=== PATIENT | female | born 1995 | race Caucasian/White ===

== ENCOUNTER 2019-06-24 17:25 | Emergency (ER) | payer OTHER ==
[~2019-06-24] VITALS: Ht 172.7 cm; Wt 90.7 kg
[2019-06-24 18:27] LABS: ABSOLUTE EOSINOPHILS 0.1 thou/uL (0.0-0.7); ABSOLUTE LYMPHOCYTES 2.3 thou/uL (0.8-5.3); ABSOLUTE MONOCYTES 0.7 thou/uL (0.0-1.2); ABSOLUTE NEUTROPHILS 4.9 thou/uL (1.6-8.1); BASOPHILS 0.6 %; EOSINOPHILS 1.6 %; HEMATOCRIT 40.3 % (37.0-47.0); HEMOGLOBIN 13.5 gm/dL (12.0-15.0); LYMPHOCYTES 28.2 %; MCH 28.8 pg (26.0-34.0); MCHC 33.5 g/dL (28.0-37.0); MCV 85.8 fL (80.0-100.0); MONOCYTES 8.9 %; MPV 8.2 fl. (7.2-11.1); NUCLEATED RBCS 0 /100WBC; PLATELET COUNT* 336 thou/uL (150-400); POLYS 60.7 %; RDW-CV 14.9 % (10.5-14.5)
[2019-06-24 18:34] LABS: ANION GAP 10 mmol/L (7-16); BUN 13 mg/dL (7-18); CALCIUM 8.9 mg/dL (8.5-10.1); CHLORIDE 102 mmol/L (98-107); CO2 24 mmol/L (21-32); CREATININE 0.7 mg/dL (0.6-1.3); GLUCOSE 91 mg/dL (70-99); POTASSIUM 3.9 mmol/L (3.5-5.1); SODIUM 136 mmol/L (136-145)
[2019-06-24 18:43] LABS: ALBUMIN 3.8 g/dL (3.4-5.0); ALKALINE PHOSPHATASE 53 U/L (46-116); LIPASE 64 U/L (73-393); SGOT 24 U/L (15-37); SGPT 32 U/L (30-65); TOTAL BILIRUBIN 0.4 mg/dL (<0.1-1.0); TOTAL PROTEIN 7.5 g/dL (6.4-8.2); TROPONIN-I LEVEL <0.06 ng/mL (<0.06)
[2019-06-24 19:45] LABS: URINE BILIRUBIN NEGATIVE (Negative); URINE BLOOD NEGATIVE (Negative); URINE CLARITY CLEAR; URINE COLOR YELLOW; URINE GLUCOSE-RANDOM NEGATIVE (Negative); URINE KETONES NEGATIVE (Negative); URINE LEUKOCYTES-REFLEX NEGATIVE (Negative); URINE NITRITE-REFLEX NEGATIVE (Negative); URINE PROTEIN NEGATIVE (Negative); URINE SPECIFIC GRAVITY 1.015 (1.005-1.030); URINE UROBILINOGEN 0.2 E.U./dl (0.2-1.0)
[2019-06-24] MEDS ORDERED: IBUPROFEN 800800 M1 PO (19:57)
[2019-06-24] MEDS ORDERED: ONDANSETRON HCL4 M2 PO (19:57)
[2019-06-24 20:07] VITALS: BP 102/89
--- NOTE | 2019-06-25 17:18 | EKG ---
[place] [address] ELECTROCARDIOGRAM REPORT Name: ZAIN NUNES Tricia Room: [facility]#: [id number] Admission: 06/24/19 Attend Phys: Discharge: 06/24/19 Date of : [birth year] Report #: [id number] THIS REPORT FOR: //name// [facility] ED Test Date: 2019-06-24 Test Time: 18:21:33 Pat Name: ZAIN NUNES Department: Room: Gender: F Civil Attorney: ASA : 1995 Requested By: Stefany Arceo Order Number: [id number] MD: Emanuel Fry Measurements Intervals [place] Rate: 69 P: 61 AR: 144 QRS: 67 QRSD: 100 T: 28 QT: 419 QTc: 449 Interpretive Statements Sinus rhythm No previous ECG available for comparison Electronically Signed On 06-25-2019 17:17:48 CDT by Emanuel Fry [email or web address] <ELECTRONICALLY SIGNED> By: Emanuel Fry MD, [facility] 06/25/19 1717 1821 182 Emanuel Fry MD, FACC /EPI
== END 2019-06-24 20:09 ==
LOC: M.ERS 17:25
PROVIDERS: Nurse Practitioner Family
DX: R10.12 Left upper quadrant pain (principal); F17.200 Nicotine dependence, unspecified, uncomplicated